=== PATIENT | female | born 1970 | race Caucasian/White ===

== ENCOUNTER → 2020-12-19 | Outpatient (CLI) | payer BC ==
--- NOTE | 2020-12-20 10:20 | MM ---
Reason for exam: screening (asymptomatic). Last mammogram was performed 2 years and 8 months ago. History: Patient has history of other cancer at age 20. Family history of breast cancer in mother at age 46, breast cancer in maternal aunt at age 65, and breast cancer in maternal aunt at age 72. Physical Findings: A clinical breast exam by your physician is recommended on an annual basis and results should be correlated with mammographic findings. MG Screening Mammo w CAD Bilateral CC, MLO, and XCCL view(s) were taken. Prior study comparison: April 21, 2018, mammogram, performed at [facility]. August 08, 2014, mammogram, performed at [facility]. There are scattered fibroglandular densities. There are benign appearing round calcifications bilaterally. There is no discrete abnormality. ASSESSMENT: Benign, BI-RAD 2 RECOMMENDATION: Routine screening mammogram of both breasts in 1 year.
== END | disposition home or self-care (01) ==
LOC: RADMAMWWP 07:27
PROVIDERS: ATTEND Obstetrics & Gynecology
DX: Z12.31 Encounter for screening mammogram for malignant neoplasm of breast (principal); Z80.3 Family history of malignant neoplasm of breast
CPT/HCPCS: 77067

== ENCOUNTER → 2023-09-21 | Outpatient (CLI) | payer BC ==
--- NOTE | 2023-09-21 12:45 | XR ---
EXAMINATION TYPE: XR chest 2V DATE OF EXAM: 09/21/2023 COMPARISON: None HISTORY: 53-year-old female R05.9, unspecified cough TECHNIQUE: Frontal and lateral views FINDINGS: The heart is upper limits of normal in size. Aorta and pulmonary vasculature within normal limits. No consolidation or pleural effusion. Questionable nodularity at the right lower lung versus summation artifact. IMPRESSION: No acute cardiopulmonary process. Either summation artifact or a subtle underlying pulmonary nodule a t the right lower lung. Depending on any smoking history and other risk factors, either CT chest for more detailed parenchymal assessment versus follow-up radiograph in 2-3 months.
== END | disposition home or self-care (01) ==
LOC: RADXRMAIN 12:14
PROVIDERS: ATTEND Family Medicine
DX: R91.8 Other nonspecific abnormal finding of lung field (principal); R05.9 Cough, unspecified
CPT/HCPCS: 71046

== ENCOUNTER → 2023-10-08 | Outpatient (CLI) | payer BC ==
--- NOTE | 2023-10-11 17:59 | MM ---
Reason for Exam: Screening (asymptomatic). Last mammogram was performed 2 year(s) and 10 month(s) ago. Patient History: Menarche at age 9. First Full-Term at age 29. Postmenopausal. Patient has history of breast feeding. Other cancer, age 20. Maternal aunt had breast cancer, age 65. Maternal aunt had breast cancer, age 72. Mother had breast cancer, age 46. Risk Values: Twyla 5 year model risk: 2.4%. NCI Lifetime model risk: 17.5%. Prior Study Comparison: 08/08/2014 Screening Mammogram, [facility]. 04/21/2018 Screening Mammogram, [facility]. 12/19/2020 Bilateral Screening Mammogram, [facility]. Tissue Density: The breasts are heterogeneously dense, which may obscure small masses. Findings: Analyzed By CAD. There is no suspicious group of microcalcifications or new suspicious mass in either breast. Overall Assessment: Negative, BI-RAD 1 Management: Screening Mammogram of both breasts in 1 year. . Patient should continue monthly self-breast exams. A clinical breast exam by your physician is recommended on an annual basis. This exam should not preclude additional follow-up of suspicious palpable abnormalities. Note on Twyla scores and lifetime risk: 1. A Twyla score greater than 3% is considered moderate risk. If this is the case, consider specialist referral to assess eligibility for a risk reducing agent. 2. If overall lifetime risk for the development of breast cancer is 20% or higher, the patient may qualify for future screening with alternating mammogram and breast MRI. Electronically signed and approved by: Dulce Diaz M.D. Radiologist
== END | disposition home or self-care (01) ==
LOC: RADMAMWWP 07:32
PROVIDERS: ATTEND Obstetrics & Gynecology
DX: Z12.31 Encounter for screening mammogram for malignant neoplasm of breast (principal); Z80.3 Family history of malignant neoplasm of breast; Z78.0 Asymptomatic menopausal state
CPT/HCPCS: 77063; 77067

== ENCOUNTER → 2023-11-04 | Outpatient (CLI) | payer BC ==
--- NOTE | 2023-11-04 09:24 | CT ---
EXAMINATION TYPE: CT chest w con DATE OF EXAM: 11/04/2023 COMPARISON: 09/21/2023 HISTORY: spot on lung CT DLP: 499 mGycm, Automated exposure control for dose reduction was used. CONTRAST: Performed injected with 100 mL of Isovue 300. TECHNIQUE: Axial images were obtained at 5 mm thick sections. Reconstructed images are reviewed on [employer] computer in the coronal plane. FINDINGS: Portion of the thyroid visualized is normal. No suspicious lung nodules or focal infiltrates are present. No enlarged mediastinal or hilar adenopathy is evident. The ascending aorta diameter at the level o f the main pulmonary artery is 3.3 cm. The main pulmonary artery diameter at the bifurcation is 2.[address] sections are obtained through the upper abdomen. Abdomen is essentially unremarkable. IMPRESSION: 1. Unremarkable CT chest. 2. No suspicious abnormalities to account for chest x-ray finding.
== END | disposition home or self-care (01) ==
LOC: RADCTMAIN 07:34
PROVIDERS: ATTEND Family Medicine
DX: R91.1 Solitary pulmonary nodule (principal); Z87.891 Personal history of nicotine dependence
CPT/HCPCS: 71260; Q9967

== ENCOUNTER → 2025-02-07 | Outpatient (CLI) | payer BC ==
--- NOTE | 2025-02-07 08:14 | MM ---
Reason for Exam: Screening (asymptomatic). Last mammogram was performed 1 year(s) and 4 month(s) ago. Patient History: Menarche at age 9. First Full-Term at age 29. Postmenopausal. Patient has history of breast feeding. Other cancer, age 20. Maternal aunt had breast cancer, age 65. Maternal aunt had breast cancer, age 72. Mother had breast cancer, age 46. Risk Values: Twyla 5 year model risk: 2.5%. NCI Lifetime model risk: 17.2%. Prior Study Comparison: 08/08/2014 Screening Mammogram, [facility] . 04/21/2018 Screening Mammogram, [facility] . 12/19/2020 Bilateral Screening Mammogram, [facility]. 10/08/2023 Bilateral MG 3D screening mammo w/cad, [facility]. Tissue Density: The breasts are heterogeneously dense, which may obscure small masses. Findings: Analyzed By CAD. There is no suspicious group of microcalcifications or new suspicious mass in either breast. Overall Assessment: Negative, BI-RAD 1 Management: Screening Mammogram of both breasts in 1 year. . Patient should continue monthly self-breast exams. A clinical breast exam by your physician is recommended on an annual basis. This exam should not preclude additional follow-up of suspicious palpable abnormalities. Note on Twyla scores and lifetime risk: 1. A Twyla score greater than 3% is considered moderate risk. If this is the case, consider specialist referral to assess eligibility for a risk reducing agent. 2. If overall lifetime risk for the development of breast cancer is 20% or higher, the patient may qualify for future screening with alternating mammogram and breast MRI. [facility], , 02/07/2025 8:11 AM. Electronically signed and approved by: Aime Marte M.D. Radiologis
== END | disposition home or self-care (01) ==
LOC: RADMAMWWP 07:42
PROVIDERS: ATTEND Obstetrics & Gynecology
DX: Z12.31 Encounter for screening mammogram for malignant neoplasm of breast (principal); R92.333 Mammographic heterogeneous density, bilateral breasts; Z78.0 Asymptomatic menopausal state; Z80.3 Family history of malignant neoplasm of breast
CPT/HCPCS: 77063; 77067